=== PATIENT | female | born 1950 | race Caucasian/White ===

== ENCOUNTER 2020-05-16 08:23 | Outpatient (CLI) | payer MEDICARE, SELFPAY ==
--- NOTE | ~2020-05-16 | XR_ITS ---
XR hip RT min 3V w AP pelvis 05/16/2020 09:51 Indication: Right hip pain for 6 months Procedure: 4 views of the right hip including AP pelvis Comparison: No prior studies for comparison. Findings: There is moderate osteoarthritis of the right hip. Pelvic rings are intact. There is lumbar spondylosis with levocurvature of the lumbar spine. No fracture or traumatic malalignment. Impression: 1: Moderate osteoarthritis of the right hip. Reviewed, dictated and finalized at location A. OGRAPH CARTRIDGE ASSEMBLER Impression: 1: Moderate osteoarthritis of the right hip.
--- NOTE | ~2020-05-16 | DEXA_ITS ---
Bone Density Report Name: Aimee Lopez Age: 69 Sex: Female Ethnicity: White Date of : 1950 Indication: postmenopausal; height loss; Referring Provider: Uma Merino Study: Bone densitometry was performed. Exam Date: May 16, 2020 Accession number: [id number] Bone Density: Region BMD T-score Z-score Classification AP Spine (L1-L4) 1.019 -0.3 1.9 Normal Femoral Neck (Left) 0.647 -1.8 0.0 Osteopenia Total Hip (Left) 0.830 -0.9 0.6 Normal Total Hip Bilateral Avg 0.744 -1.6 -0.1 Osteopenia Femoral Neck (Right) 0.584 -2.4 -0.6 Osteopenia Total Hip (Right) 0.656 -2.3 -0.8 Osteopenia World Health Organization criteria for BMD impression classify patients as: Normal (T-score at or above -1.0), Osteopenia (T-score between -1.0 and -2.5), or Osteoporosis (T-score at or below -2.5). 10-year Fracture Risk: FRAX not reported because: Treated for osteoporosis Clinical Information Provided by Patient: Is being treated for osteoporosis Has used the following medications: Fosamax (i.e. alendronate) Patient maximum height was 69.5 Menopause Age: 54 No regular weight bearing exercise Drinks caffeinated beverages Onset of menses at age 12 Number of children 0 Impression: The patient has low bone mass, based on the Right Femoral Neck T-score. Discussion: It is important to ask patients whether they are taking their medications and to encourage continued and appropriate compliance with their osteoporosis therapies to reduce fracture risk. It is also important to review their risk factors and encourage appropriate calcium and vitamin D intakes, exercise, fall prevention and other lifestyle measures. Follow-Up: Consider a repeat BMD and Vertebral Fracture Assessment (VFA) exam in 2 years or sooner if medically necessary, to reassess this patient's status. Reported by: MILLIE on 05/16/2020 8:46:00 AM. Reviewed, dictated and finalized at location AJesica YU
--- NOTE | ~2020-05-16 | MM_ITS ---
EXAMINATION: MM screening dewey BI w jakub HISTORY: Screening mammogram TECHNIQUE: Craniocaudal and mediolateral oblique 3-D tomosynthesis images were obtained and synthetic 2-D images were generated. CAD analysis was submitted and interpreted. COMPARISON: 10/20/2012 bilateral digital screening mammogram BREAST PARENCHYMAL COMPOSITION: There are scattered areas of fibroglandular density. FINDINGS: There is no evidence of suspicious mass, calcification, or architectural distortion to sugg est malignancy in either breast. There has been no suspicious interval change. IMPRESSION: 1. No mammographic evidence of malignancy. 2. Recommend routine screening mammography in one year. BI-RADS Category 1: Negative Reviewed, dictated and finalized at location A. ILE MACHINE OPERATOR
== END 2020-05-16 08:24 | disposition home or self-care (01) ==
PROVIDERS: PCP Family Medicine; Visit Provider Nurse Practitioner Family
DX: Z12.31 Encounter for screening mammogram for malignant neoplasm of breast (principal); Z78.0 Asymptomatic menopausal state; M25.551 Pain in right hip; M16.11 Unilateral primary osteoarthritis, right hip; M85.89 Other specified disorders of bone density and structure, multiple sites
CPT/HCPCS: 73502; 77063; 77067; 77080

== ENCOUNTER 2020-05-29 13:34 | Outpatient (CLI) | payer MEDICARE, SELFPAY ==
--- NOTE | ~2020-05-29 | MR_ITS ---
EXAMINATION: MR hip RT wo con DATE: 05/29/2020 15:17 INDICATION: Right hip pain. TECHNIQUE: Magnetic resonance imaging (MRI) of the right hip was performed without intravenous contra st. Sequences included axial and coronal PD-weighted FS FSE and axial T1-weighted FSE of the pelvis. Sequences of the hip included 2D FIESTA, T1-weighted fast GRE, and axial, coronal, and sagittal PD-we ighted FS FSE. COMPARISON: Pelvis and right hip radiographs 05/16/2020 FINDINGS: Bones/cartilage: There is levocurvature and severe spondylosis of lumbar spine. There is severe right hip osteoarthrit is with full-thickness cartilage loss, mild subchondral edema-like marrow signal intensity, and arnie nal osteophytes. There is mild left hip osteoarthritis. No fracture. Labrum: There is a tear of the right acetabular labrum. Fluid: There is a moderate-sized right hip joint effusion. There is a small left hip joint effusion. There i s moderate right and mild left trochanteric bursitis. Soft tissues: There is a partial tear of right gluteus minimus tendon. There is a partial tear of left gluteus mini mus tendon. The gluteus medius tendons are normal. There is moderate tendinopathy of the hamstring or igins bilaterally. The iliopsoas tendons are normal. There is a 3.7 cm cyst in the right adnexa. IMPRESSION: 1. Severe right hip osteoarthritis and mild left hip osteoarthritis. 2. Moderate-sized right hip joint effusion and small left hip joint effusion. 3. 3.7 cm right adnexal cyst, likely benign. Pelvis ultrasound is recommended in one year. Reviewed, dictated and finalized at location B. RNET MARKETING COORDINATOR IMPRESSION: 1. Severe right hip osteoarthritis and mild left hip osteoarthritis. 2. Moderate-sized right hip joint effusion and small left hip joint effusion. 3. 3.7 cm right adnexal cyst, likely benign. Pelvis ultrasound is recommended i n one year.
== END 2020-05-29 13:35 | disposition home or self-care (01) ==
PROVIDERS: PCP Family Medicine; Visit Provider Nurse Practitioner Family
DX: M16.11 Unilateral primary osteoarthritis, right hip (principal); M47.816 Spondylosis without myelopathy or radiculopathy, lumbar region; S83.8X1A Sprain of other specified parts of right knee, initial encounter; M70.61 Trochanteric bursitis, right hip; S76.311A Strain of muscle, fascia and tendon of the posterior muscle group at thigh level, right thigh, initial encounter; N83.8 Other noninflammatory disorders of ovary, fallopian tube and broad ligament; M25.451 Effusion, right hip
CPT/HCPCS: 73721

== ENCOUNTER → 2022-01-16 08:37 | Outpatient (REF) | payer MEDICARE, SELFPAY | LOC: ANHLAB 08:37 | PROVIDERS: PCP Family Medicine; Visit Provider Nurse Practitioner | DX: C44.519 Basal cell carcinoma of skin of other part of trunk (principal); L82.1 Other seborrheic keratosis | CPT/HCPCS: 88305 ==

== ENCOUNTER 2022-03-10 14:08 | Outpatient (NON) | payer MEDICARE, SELFPAY | END 2022-03-10 14:09 | disposition home or self-care (01) | LOC: ANHLAB 14:09 | PROVIDERS: PCP Family Medicine; Visit Provider Nurse Practitioner | DX: C44.519 Basal cell carcinoma of skin of other part of trunk (principal) | CPT/HCPCS: 88305; 88331 ==